=== PATIENT | female | born 1975 | race Caucasian/White ===

== ENCOUNTER → 2018-10-12 | Outpatient (CLI) | payer BC ==
[~2018-10-12] MED LIST: CALCIUM CARB W/1 TA1; DHA; FISH OIL500 MG PO; IBU600 MG PO; MASON NATURAL325 MG PO; PERCOCET 325 MG1 TA2 PO; PROMETRIUM100 MG PO; VITAMIN B; [UNRECOGNIZED DRUG - OTHER] PO
== END ==
LOC: MC.RAD 08:28
DX: N63.42 Unspecified lump in left breast, subareolar (principal); N60.02 Solitary cyst of left breast
CPT/HCPCS: G0279

== ENCOUNTER → 2019-11-26 | Outpatient (CLI) | payer BC | LOC: MC.RAD 11:36 | DX: Z12.31 Encounter for screening mammogram for malignant neoplasm of breast (principal) ==

== ENCOUNTER 2021-06-17 18:42 | Emergency (ER) | payer BC ==
[~2021-06-17] VITALS: Ht 157.5 cm; Wt 68.2 kg
[2021-06-17 19:27] LABS: BASO % 0.9 % (0.0-2.0); GRAN # 1.4 K/mm3 (1.4-6.5); GRAN % 61.2 % (42.2-75.2); HEMATOCRIT 40.7 % (37.0-47.0); HEMOGLOBIN 13.5 g/dl (12.5-16.0); LYMPH # 0.5 K/mm3 (1.2-3.4); LYMPH % 23.8 % (20.0-51.0); MEAN CELL VOLUME 100 fl (80.0-100.0); MEAN CORPUSCULAR HEMOGLOBIN 33 pg (27-31); MEAN CORPUSCULAR HGB CONC 33 g/dl (33.0-37.0); MEAN PLATELET VOLUME 9.3 fl (7.4-10.4); MONO # 0.3 K/mm3 (0.1-0.6); MONO % 13.7 % (1.7-9.3); PLATELET COUNT 92 K/mm3 (130-400); RED BLOOD COUNT 4.07 M/mm3 (4.10-5.30); REDCELL DISTRIBUTION WIDTH-CV 13.7 % (11.5-14.5)
[2021-06-17 19:41] LABS: ALANINE AMINOTRANSFERASE 150 U/L (0-55); ALBUMIN 3.8 gm/dL (3.5-5.0); ALKALINE PHOSPHATASE 88 U/L (40-150); ANION GAP 19 mmol/L (7-16); AST,SGOT 395 U/L (5-34); BLOOD UREA NITROGEN 11 mg/dL (7-19); CALCIUM 7.9 mg/dL (8.4-10.2); CHLORIDE 105 mmol/L (98-107); CREATININE, serum 0.61 mg/dL (0.57-1.11); GLUCOSE 88 mg/dL (70-99); POTASSIUM 4.1 mmol/L (3.5-4.5); SODIUM 138 mmol/L (136-145); TOTAL PROTEIN 7.2 gm/dL (6.2-8.1)
[2021-06-17 19:49] LABS: CARBON DIOXIDE 14 mmol/L (22-29)
[2021-06-17 19:50] LABS: ALCOHOL(ethanol),MEDICAL 522 mg/dL (0-10); TROPONIN-I < 0.010 ng/mL (0.00-0.033)
[2021-06-17 20:08] LABS: COLLECTION METHOD CLEAN CATCH
[2021-06-17 20:25] LABS: MUCOUS Present (NOT PRESENT); PH 6 (5-8); SQUAMOUS EPITHELIAL 0-2 /hpf (0-10); URINE APPEARANCE Clear (CLEAR/HAZY); URINE BACTERIA None Seen /hpf (NONE SEEN); URINE BILIRUBIN Negative (NEGATIVE); URINE BLOOD 1+ (NEGATIVE); URINE COLOR Yellow (YELLOW); URINE GLUCOSE Negative (NEGATIVE); URINE KETONE 1+ (NEGATIVE); URINE LEUKOCYTE ESTERASE Negative (NEGATIVE); URINE NITRATE Negative (NEGATIVE); URINE PROTEIN(semi-quant) 1+ (NEGATIVE); URINE RBC 0-2 /hpf (0-2); URINE UROBILINOGEN Negative (NEGATIVE)
[2021-06-17 20:40] LABS: TRICYCLIC ANTIDEPRESS URINE NEGATIVE
[2021-06-17 23:15] VITALS: BP 120/81; PULSE 115; TEMP 98.2
== END 2021-06-17 23:15 | disposition home or self-care (01) ==
LOC: COL.ER 18:42
PROVIDERS: Physician Assistant
DX: F10.129 Alcohol abuse with intoxication, unspecified (principal); Y90.8 Blood alcohol level of 240 mg/100 ml or more
CPT/HCPCS: J2060; J2405